=== PATIENT | female | born 1955 | race Caucasian/White ===

== ENCOUNTER 2016-06-16 06:27 | Inpatient (IN) | payer SELFPAY ==
[~2016-06-16] VITALS: Ht 165.1 cm; Wt 67.8 kg
[2016-06-16] VITALS (10 sets, daily range): BP systolic 115–175; BP diastolic 60–75
[2016-06-16] MEDS ORDERED: FENTANYL PF 100 MCG/2 ML VIAL. IV PRN ×4 (06:45→20:15)
[2016-06-16] MEDS ORDERED: ONDANSETRON PF 4 MG/2 ML VIAL. IV PRN ×4 (06:45→14:00)
--- NOTE | 2016-06-16 06:57 | PHYS DOC ---
Past Medical History Past Medical History: Hypertension Past Surgical History breast tumor removal Alcohol Use: None Drug Use: None Adult General Chief Complaint Chief Complaint: ABDOMINAL PAIN HPI HPI 52-year-old female presenting to the emergency department with periumbilical abdominal pain. This started approximately 24 hours ago. She has associated nausea and vomiting. Her vomitus is nonbloody and nonbilious. Over the course last 24 hours her pain is migrated down to the right lower quadrant. Her pain is moderate sharp nonradiating and without alleviating factors. Review of systems is negative for chest pain shortness of breath. She denies fevers or chills. Positive for nausea and vomiting. All other review of systems is negative unless otherwise noted in history of present illness. Review of Systems Review of Systems SEE ABOVE. Current Medications Current Medications Current Medications Medications (Trade) Dose Ordered Sig/Nj Start Time Stop Time Status Last Admin Dose Admin Fentanyl Citrate (Fentanyl 2ml Vial) 50 mcg PRN Q2HR PRN 06/16/16 06:45 06/16/16 06:54 50 MCG Iohexol 75 ml 75 ml 1X ONCE 06/16/16 08:30 06/16/16 08:31 DC 06/16/16 08:28 75 ML Ondansetron HCl (Zofran) 4 mg PRN Q30MIN PRN 06/16/16 06:45 06/16/16 06:54 4 MG Piperacillin Sod/ Tazobactam Sod 1 each 1 each PRN DAILY PRN 06/16/16 09:00 Sodium Chloride (Iv Sodium Chloride 0.9% 500ml Bag) 500 ml @ 500 mls/hr 1X ONCE 06/16/16 09:00 06/16/16 09:59 DC 06/16/16 09:09 500 MLS/HR Sodium Chloride (Iv Sodium Chloride 0.9% 1000ml Bag) 1,000 ml @ 100 mls/hr 1X ONCE 06/16/16 09:00 06/16/16 18:59 06/16/16 09:53 100 MLS/HR Allergies Allergies Allergies Coded Allergies Type Severity Reaction Last Updated Verified tetracycline Allergy Unknown 06/16/16 Yes Physical Exam Physical Exam Constitutional: Well developed, well nourished, no acute distress, non-toxic appearance. HENT: Normocephalic, atraumatic, bilateral external ears normal, oropharynx moist, no oral exudates, nose normal. [] Eyes: PERRLA, EOMI, conjunctiva normal, no discharge. [] Neck: Normal range of motion, no tenderness, supple, no stridor. Cardiovascular:Heart rate regular rhythm, no murmur [] Lungs & Thorax: Bilateral breath sounds clear to auscultation Abdomen: Patient has tenderness in the right lower quadrant. Positive McBurney' s point. Negative Tolentino sign. No rebound tenderness. Mild guarding present. Skin: Warm, dry, no erythema, no rash. [] Back: No tenderness, no CVA tenderness. Extremities: No tenderness, no cyanosis, no clubbing, ROM intact, no edema. [] Neurologic: Alert and oriented X 3, normal motor function, normal sensory function, no focal deficits noted. Psychologic: Affect normal, judgement normal, mood normal. [] Current Patient Data Vital Signs Vital Signs Date Time Temp Pulse Resp B/P Pulse Ox O2 Delivery O2 Flow Rate FiO2 06/16/16 08:30 66 173/81 Room Air 06/16/16 08:00 16 96 06/16/16 06:33 97.9 97.9 Lab Values Laboratory Tests Test 06/16/16 06:45 White Blood Count 12.6x10^3/uL (4.0-11.0) H Red Blood Count 4.46x10^6/uL (3.50-5.40) Hemoglobin 13.8g/dL (12.0-15.5) Hematocrit 41.0% (36.0-47.0) Mean Corpuscular Volume 92fL (79-100) Mean Corpuscular Hemoglobin 31pg (25-35) Mean Corpuscular Hemoglobin Concent 34g/dL (31-37) Red Cell Distribution Width 12.7% (11.5-14.5) Platelet Count 230x10^3/uL (140-400) Neutrophils (%) (Auto) 77% (31-73) H Lymphocytes (%) (Auto) 14% (24-48) L Monocytes (%) (Auto) 9% (0-9) Eosinophils (%) (Auto) 0% (0-3) Basophils (%) (Auto) 0% (0-3) Neutrophils # (Auto) 9.7x10^3uL (1.8-7.7) H Lymphocytes # (Auto) 1.7x10^3/uL (1.0-4.8) Monocytes # (Auto) 1.1x10^3/uL (0.0-1.1) Eosinophils # (Auto) 0.0x10^3/uL (0.0-0.7) Basophils # (Auto) 0.0x10^3/uL (0.0-0.2) Urine Collection Type Unknown Urine Color Yellow Urine Clarity Clear Urine pH 7.0 Urine Specific [place] <=1.005 Urine Protein Negativemg/dL (NEG-TRACE) Urine Glucose (UA) Negativemg/dL (NEG) Urine Ketones (Stick) Negativemg/dL (NEG) Urine Blood Small (NEG) Urine Nitrite Negative (NEG) Urine Bilirubin Negative (NEG) Urine Urobilinogen Dipstick 0.2mg/dL (0.2 mg/dL) Urine Leukocyte Esterase Trace (NEG) Urine RBC 0/HPF (0-2) Urine WBC 1-4/HPF (0-4) Urine Squamous Epithelial Cells Mod/LPF Urine Bacteria 0/HPF (0-FEW) Sodium Level 134mmol/L (136-145) L Potassium Level 3.6mmol/L (3.5-5.1) Chloride Level 97mmol/L (98-107) L Carbon Dioxide Level 26mmol/L (21-32) Anion Gap 11 (6-14) Blood Urea Nitrogen 10mg/dL (7-20) Creatinine 0.8mg/dL (0.6-1.0) Estimated GFR (Cockcroft-Gault) 73.7 BUN/Creatinine Ratio 13 (6-20) Glucose Level 141mg/dL (70-99) H Calcium Level 8.8mg/dL (8.5-10.1) Total Bilirubin 0.6mg/dL (0.2-1.0) Aspartate Amino Transferase (AST) 20U/L (15-37) Alanine Aminotransferase (ALT) 39U/L (14-59) Alkaline Phosphatase 119U/L (46-116) H Total Protein 7.7g/dL (6.4-8.2) Albumin 3.6g/dL (3.4-5.0) Albumin/Globulin Ratio 0.9 (1.0-1.7) L Lipase 89U/L (73-393) Laboratory Tests 06/16/16 06:45 Laboratory Tests 06/16/16 06:45 EKG EKG [] Radiology/Procedures Radiology/Procedures [] Course & Med Decision Making Course & Med Decision Making Pertinent Labs and Imaging studies reviewed. (See chart for details) [] 60-year-old female presenting to the emergency department today with abdominal pain. Triage vital signs. Afebrile with a normal heart rate. Otherwise hypertension present. Physical exam showed tenderness in McBurney's point. The patient was given IV fluids nausea and pain medication in the emergency department. Labs sent. Leukocytosis present. CT the abdomen pelvis suggestive of acute appendicitis. The patient was placed nothing by mouth. IV antibiotics administered. Otherwise urine testing negative. Chemistry panel otherwise unremarkable. The patient was then admitted to our hospital for further evaluation treatment and care. Our surgeon circulation crew leader dr. sebastian was notified at 930am. Dragon Disclaimer Dragon Disclaimer This electronic medical record was generated, in whole or in part, using a voice recognition dictation system. Departure Departure Impression: Primary Impression: Abdominal pain Disposition: ADMITTED INPATIENT Admitting Physician: Rafael Peoples Condition: STABLE Referrals: GAIL GILLIS MD Patient Instructions: Abdominal Pain JACQUES FIELDS MD Jun 16, 2016 06:57
[2016-06-16 06:58] LABS: BASO % 0 % (0-3); EOS % 0 % (0-3); HEMOGLOBIN 13.8 g/dL (12.0-15.5); LYMPH # 1.7 x10^3/uL (1.0-4.8); LYMPH % 14 % (24-48); MEAN CORPUSCULAR HEMOGLOBIN 31 pg (25-35); MEAN CORPUSCULAR HGB CONC 34 g/dL (31-37); MEAN CORPUSCULAR VOLUME 92 fL (79-100); MONO % 9 % (0-9); NEUT % 77 % (31-73); PLATELET COUNT 230 x10^3/uL (140-400); RED BLOOD COUNT 4.46 x10^6/uL (3.50-5.40); RED CELL DISTRIBUTION WIDTH 12.7 % (11.5-14.5); WHITE BLOOD COUNT 12.6 x10^3/uL (4.0-11.0)
[2016-06-16 06:59] LABS: BILIRUBIN,URINE NEGATIVE (NEG); GLUCOSE,URINE NEGATIVE (NEG); NITRITE,URINE NEGATIVE (NEG); PROTEIN,URINE NEGATIVE (NEG-TRACE); UROBILINOGEN,URINE 0.2 mg/dL (0.2 mg/dL)
[2016-06-16 07:09] LABS: CALCIUM 8.8 mg/dL (8.5-10.1); CREATININE 0.8 mg/dL (0.6-1.0); GFR 73.7; POTASSIUM 3.6 mmol/L (3.5-5.1)
[2016-06-16 07:15] LABS: ALBUMIN 3.6 g/dL (3.4-5.0); ALBUMIN/GLOBULIN RATIO 0.9 (1.0-1.7); TOTAL BILIRUBIN 0.6 mg/dL (0.2-1.0); TOTAL PROTEIN 7.7 g/dL (6.4-8.2)
[2016-06-16] MEDS ORDERED: IV NORMAL SALINE 500ML BAG 500 ML IV ONE ×2 (07:15→09:00)
[2016-06-16 07:34] LABS: BACTERIA,URINE 0 /HPF (0-FEW); RBC,URINE 0 /HPF (0-2); SQUAMOUS EPITHELIAL CELL,UR MOD /LPF
[2016-06-16] MEDS ORDERED: IOHEXOL 300 MG/ML 75 ML VIAL IV ONE (08:30)
[2016-06-16] MEDS ORDERED: PIP/TAZO PER PHARMACY MC PRN (09:00)
[2016-06-16] MEDS ORDERED: IV NORMAL SALINE 1000ML BAG 1,000 ML IV ONE ×2 (09:00→13:30)
--- NOTE | 2016-06-16 09:01 | RAD ---
CT of the abdomen and pelvis with contrast, 06/16/2016: History: Right lower quadrant pain Multidetector CT imaging was performed following an IV bolus injection of iodinated contrast material. No oral contrast material was administered for this exam. There is minimal bibasilar atelectasis/infiltrate. The heart is at the upper limits of normal in size. No hepatic abnormality is seen. The gallbladder is unremarkable. The pancreas shows no abnormality. The spleen is of normal size. There are prominent extrarenal pelves without evidence of hydronephrosis. Aortoiliac calcific plaquing is present without evidence of aneurysm. No abdominal or pelvic adenopathy is seen. There is a blind-ending tubular structure containing fluid in the right lower quadrant along the base of the cecum compatible with a dilated appendix. Its gruber are thickened. It measures 15 mm in greatest width. There is mild streaky periappendiceal inflammation. The appearance is that of acute appendicitis. The bowel loops are not dilated. There may be a trace amount of free fluid in the pelvis on the left. No free air is evident in the abdomen or pelvis. IMPRESSION: Acute appendicitis. PQRS Compliance Statement: One or more of the following individualized dose reduction techniques were utilized for this examination: 1. Automated exposure control 2. Adjustment of the mA and/or kV according to patient size 3. Use of iterative reconstruction technique
[2016-06-16] MEDS: PIPERACILLIN/TAZOBACTAM 3.375 GM in IV NORMAL SALINE 50ML 50 ML IV SCH ×2 (09:12→19:20)
--- NOTE | 2016-06-16 09:24 | ACF ---
Admission Forms Criteria ABDOMINAL PAIN Clinical Indications for Admission to Inpatient Care (Place 'X' for any and all applicable criteria): Admission is indicated for ANY ONE of the following(1)(2)(3)(4)(5): [X]I. Inpatient admission required rather than observation care (Also use Abdominal Pain: Observation Care, as appropriate) because of ANY ONE of the following: [ ]a) Severe pain requiring acute inpatient management [X]b) Identification of etiology/finding that requires inpatient care (eg, aortic dissection, free air) [ ]c) Absent bowel sounds with complete ileus(6) [ ]d) Suspected toxic megacolon [ ]e) Severe electrolyte abnormalities requiring inpatient care [ ]f) High fever or infection requiring inpatient admission as indicated by ANY ONE of following(7)(8): [ ] i) Appropriate outpatient or observational care antimicrobial treatment unavailable, not effective, or not feasible [ ] ii) Documented bacteremia [ ] iii) Temperature > 104.9 degrees F (oral) [ ] iv) T >103.1 F (oral) or < 96.8 F(rectal) that does not respond to all emergency treatment measures [ ]g) Signs of intestinal obstruction [B] [ ]h) Hemodynamic instability [ ]i) IV fluid to replace significant ongoing losses (greater than 3 L/m2 per day) (12)(13) [ ]j) Percutaneous or open drainage (eg, abscess, biliary tract ) procedures [ ]k) Parenteral nutrition regimen that must be implemented on inpatient basis [ ]l) Other condition,treatment or monitoring requiring inpatient admission. [ ]II. Peritoneal signs present [ ]III. Surgery needed that cannot be performed on an ambulatory basis. [ ]IV. Evaluation requires patient to not eat or drink for extended period ( eg, more than 24 hours). [ ]V. Contraindications and/or Inappropriate clinical situations for Observational Care in patients with abdominal pain, when ANY ONE of the following is required: [ ]a) Thorough evaluation is required to prevent catastrophic events due to delays in diagnosing (e.g.Mesenteric ischemia) 1,3 [ ]b) Patient with severe pathology or with chronic symptoms unlikely to improve in the ED stay (3) [ ]. General contraindications and/or Inappropriate clinical situations for Observational Care in patients with abdominal pain, when ANY ONE of the following is required: [ ]a) Prediction of prolongation of LOS based on ANY ONE of the following may be considered as a contraindication for observational care 2, 3, 4, 5, 6, 7, 8, 9, 10, 11 [ ]i) Age > 65 yrs. [ ]ii) Patient arriving by ambulance [ ]iii) Patient with high acuity [ ]iv) Patient requiring vital sign monitoring [ ]v) Patient on IV medication [ ]b) Systolic blood pressures 180mmHg 3,12 [ ]c) Patient with altered mental status including delirium and other alteration of consciousness, (3) [ ]d) Patient whose discharge disposition will be to a assisted home or rehabilitation home should not be managed in Emergency Department Observation Unit. CMS rule requires 3 days hospital stay before such placement.3,13 [ ]e) Patient with failure to thrive due to broad array of etiologies 3,16,17 [ ]f) Inability to ambulate 3,14 Extended stay beyond goal length of stay may be needed for(2)(3): [ ]a) Persistent abdominal pain with suspected intra-abdominal process [ ]b) Diagnosed condition requiring continued stay (e.g., pancreatitis, complicated diverticulitis) [ ]c) Surgery (e.g., colectomy) The original [facility] content created by [facility] has been revised. The portions of the content which have been revised are identified through the use of italic text or in bold, and [facility] has neither reviewed nor approved the modified material.All other unmodified content is copyright [facility]. Please see references footnoted in the original [facility] edition 2016 Admission Criteria Met?: Yes KANE VALLE Jun 16, 2016 09:24
[2016-06-16] MEDS ORDERED: MORPHINE SULFATE 2 MG/ML DISP.SYRIN. IV PRN ×2 (09:30→14:00)
[2016-06-16 09:41] LABS: PROTHROMBIN TIME PATIENT 12.9 SEC (11.7-14.0)
--- NOTE | 2016-06-16 10:31 | EKG ---
[facility] [address] [place] [address] Test Date: 2016-06-16 Test Time: 10:20:10 Pat Name: MISTY CORREA Department: Room: [facility] Gender: F Medicaid Service Coordinator: : 1955 Requested By: JACQUES FIELDS Order Number: [id number] Reading MD: Hali Buitrago Measurements Intervals Distant Rate: 64 P: 59 AK: 152 QRS: 18 QRSD: 78 T: 36 QT: 436 QTc: 449 Interpretive Statements SINUS RHYTHM NORMAL EKG RI6.01 Unconfirmed report No previous ECG available for comparison Electronically Signed On 06-18-2016 10:51:39 CDT by Hali Buitrago
--- NOTE | 2016-06-16 10:43 | PDOC2 ---
[employer] 06/16/16 1043: CARDIAC CONSULT DATE OF CONSULT Date of Consult DATE: 06/16/16 TIME: 10:40 REASON FOR CONSULT Reason for Consult: pre-op evaluation REFERRING PHYSICIAN Referring Physician: Dr. Vasyl Holbrook SOURCE Source: Caregiver (daughter who speaks Czech), Chart review, Patient HISTORY OF PRESENT ILLNESS HISTORY OF PRESENT ILLNESS 60 year old female visiting her daughter for [employer]. Presented to ER with bobo-umbilical pain, nausea and vomiting. CT scan of abd/pelvis with appendicitis. For surgery later today. Malignant HTN with SBP of 190 now. History of bradycardia. Unable to open program to read EKGs. Tele with NSR. No recent history of CP, dyspnea, PND, LE edema, URI. Reason for Visit: pre-operative evaluation PAST MEDICAL HISTORY Cardiovascular: HTN, Other (bradycardia) PAST SURGICAL HISTORY Past Surgical History: Hysterectomy ( with single oopherectomy), Other (breast biopsy for benign tumors) FAMILY HISTORY Family History: Heart Disease (valvular) SOCIAL HISTORY Smoke: No ALCOHOL: none Drugs: None CURRENT MEDICATIONS CURRENT MEDICATIONS Current Medications Medications (Trade) Dose Ordered Sig/Nj Route PRN Reason Start Time Stop Time Status Last Admin Dose Admin Fentanyl Citrate (Fentanyl 2ml Vial) 50 mcg PRN Q2HR PRN IV SEVERE PAIN 06/16/16 06:45 06/16/16 06:54 Ondansetron HCl 4 mg 4 mg PRN Q30MIN PRN IV NAUSEA/VOMITING 06/16/16 06:45 06/16/16 06:54 Sodium Chloride (Iv Sodium Chloride 0.9% 500ml Bag) 500 ml @ 500 mls/hr 1X ONCE IV 06/16/16 07:15 06/16/16 08:14 DC 06/16/16 07:17 Iohexol 75 ml 75 ml 1X ONCE IV 06/16/16 08:30 06/16/16 08:31 DC 06/16/16 08:28 Sodium Chloride 500 ml @ 500 mls/hr 1X ONCE IV 06/16/16 09:00 06/16/16 09:59 DC 06/16/16 09:09 Sodium Chloride 1,000 ml @ 100 mls/hr 1X ONCE IV 06/16/16 09:00 06/16/16 18:59 06/16/16 09:53 Piperacillin Sod/ Tazobactam Sod/ Sodium Chloride (Zosyn/Iv Sodium Chloride 0.9% 50ml) 50 ml @ 100 mls/hr Q6HRS IV 06/16/16 09:30 06/16/16 09:12 ALLERGIES ALLERGIES: Coded Allergies: tetracycline (Verified Allergy, Unknown, 06/16/16) ROS Review of System 14 point review with pertinent positives in HPI PHYSICAL EXAM General: Alert, Oriented X3, Cooperative, No acute distress HEENT: Atraumatic, PERRLA Lungs: Clear to auscultation, Normal air movement Heart: Regular rate, Normal S1, Normal S2, No murmurs, Other (no carotid bruits ) Abdomen: Normal bowel sounds, Soft, No tenderness Extremities: No edema Skin: No rashes Neuro: Normal speech Psych/Mental Status: Mental status NL, Mood NL MUSCULOSKELETAL: No deformity VITALS VITALS Vital Signs Date Time Temp Pulse Resp B/P Pulse Ox O2 Delivery O2 Flow Rate FiO2 06/16/16 08:30 66 173/81 Room Air 06/16/16 08:00 16 96 06/16/16 06:33 97.9 97.9 LABS Lab: Laboratory Tests Test 06/16/16 06:45 06/16/16 09:23 White Blood Count 12.6x10^3/uL (4.0-11.0) Red Blood Count 4.46x10^6/uL (3.50-5.40) Hemoglobin 13.8g/dL (12.0-15.5) Hematocrit 41.0% (36.0-47.0) Mean Corpuscular Volume 92fL (79-100) Mean Corpuscular Hemoglobin 31pg (25-35) Mean Corpuscular Hemoglobin Concent 34g/dL (31-37) Red Cell Distribution Width 12.7% (11.5-14.5) Platelet Count 230x10^3/uL (140-400) Neutrophils (%) (Auto) 77% (31-73) Lymphocytes (%) (Auto) 14% (24-48) Monocytes (%) (Auto) 9% (0-9) Eosinophils (%) (Auto) 0% (0-3) Basophils (%) (Auto) 0% (0-3) Neutrophils # (Auto) 9.7x10^3uL (1.8-7.7) Lymphocytes # (Auto) 1.7x10^3/uL (1.0-4.8) Monocytes # (Auto) 1.1x10^3/uL (0.0-1.1) Eosinophils # (Auto) 0.0x10^3/uL (0.0-0.7) Basophils # (Auto) 0.0x10^3/uL (0.0-0.2) Urine Collection Type Unknown Urine Color Yellow Urine Clarity Clear Urine pH 7.0 Urine Specific [place] <=1.005 Urine Protein Negativemg/dL (NEG-TRACE) Urine Glucose (UA) Negativemg/dL (NEG) Urine Ketones (Stick) Negativemg/dL (NEG) Urine Blood Small (NEG) Urine Nitrite Negative (NEG) Urine Bilirubin Negative (NEG) Urine Urobilinogen Dipstick 0.2mg/dL (0.2 mg/dL) Urine Leukocyte Esterase Trace (NEG) Urine RBC 0/HPF (0-2) Urine WBC 1-4/HPF (0-4) Urine Squamous Epithelial Cells Mod/LPF Urine Bacteria 0/HPF (0-FEW) Sodium Level 134mmol/L (136-145) Potassium Level 3.6mmol/L (3.5-5.1) Chloride Level 97mmol/L (98-107) Carbon Dioxide Level 26mmol/L (21-32) Anion Gap 11 (6-14) Blood Urea Nitrogen 10mg/dL (7-20) Creatinine 0.8mg/dL (0.6-1.0) Estimated GFR (Cockcroft-Gault) 73.7 BUN/Creatinine Ratio 13 (6-20) Glucose Level 141mg/dL (70-99) Calcium Level 8.8mg/dL (8.5-10.1) Total Bilirubin 0.6mg/dL (0.2-1.0) Aspartate Amino Transf (AST/SGOT) 20U/L (15-37) Alanine Aminotransferase (ALT/SGPT) 39U/L (14-59) Alkaline Phosphatase 119U/L (46-116) Total Protein 7.7g/dL (6.4-8.2) Albumin 3.6g/dL (3.4-5.0) Albumin/Globulin Ratio 0.9 (1.0-1.7) Lipase 89U/L (73-393) Prothrombin Time 12.9SEC (11.7-14.0) Prothromb Time International Ratio 1.0 (0.8-1.1) Activated Partial Thromboplast Time 30SEC (24-38) ASSESSMENT/PLAN ASSESSMENT/PLAN 1. pre-op evaluation hx of HTN and bradycardia - echo urgently OR for appendicitis later today control BP with ACEI - no BB due to bradycardia 2. HTN, malignant no BB control with ACEI; give stat dose 3. bradycardia NO BETA-BLOCKERS utility tender carding bobo-operatively as well as post-operatively ADDENDUM @ 1359: ECHO WITHOUT SIGNIFICANT FINDINGS; MAY PROCEED WITH SURGERY REVISED CENTENO SCORE = 0 AVOID BETA-BLOCKERS DUE TO HISTORY OF BRADYCARDIA Problems: SARA DAVIDSON MD 06/16/16 1849: CARDIAC CONSULT ALLERGIES ALLERGIES: Coded Allergies: tetracycline (Verified Allergy, Unknown, 06/16/16) ASSESSMENT/PLAN ASSESSMENT/PLAN Patient seen and examined. I agree with the bone nurse practitioner note. 60-year-old woman presenting with possible appendicitis and hypertensive urgency insetting of pain. Blood pressure better controlled now. No significant cardiovascular abnormalities. Indication recommendations as noted above. Echocardiogram with normal LV function. She would be deemed low risk from a cardiac standpoint. Problems: SAGRARIO GILMORE APRN Jun 16, 2016 10:43 SARA DAVIDSON MD Jun 16, 2016 18:49
[2016-06-16] MEDS: ENALAPRILAT 2.5 MG/2 ML VIAL. IV SCH ×3 (11:17→23:35)
[2016-06-16] MEDS ORDERED: hydrALAZINE 20 MG/ML VIAL. IVP PRN ×2 (12:00→13:00)
--- NOTE | 2016-06-16 12:58 | CARD ---
APPROVED REPORT EXAM: Two-dimensional and M-mode echocardiogram with Doppler and color Doppler. Other Information Quality : Good INDICATION Abnormal ECG Hypertension/HCVD Pre-Op 2D DIMENSIONS RVDd2.8 (2.9-3.5cm)Left Atrium(2D)3.4 (1.6-4.0cm) IVSd1.1 (0.7-1.1cm)Aortic Root(2D)2.3 (2.0-3.7cm) LVDd4.3 (3.9-5.9cm)LVOT Diameter2.0 (1.8-2.4cm) PWd1.1 (0.7-1.1cm)LVDs2.4 (2.5-4.0cm) FS (%) 30.0 %SV61.6 ml LVEF(%)60.0 (>50%) Aortic Valve AoV Peak Martin.180.9cm/sAoV VTI35.0cm AO Peak GR.13.1mmHgLVOT Peak Martin.158.9cm/s LVOT VTI 29.77cmAO Mean GR.7mmHg COLLIN (VMAX)2.24gv9YLJ (VTI)2.69cm2 Mitral Valve MV E Eyrphrsx05.0cm/sMV DECEL [id number] MV A Jxazujjn02.4cm/sMV SYF99ua E/A Ratio0.8MVA (PHT)3.48cm2 TDI E/Lateral E'8.3E/Medial E'9.0 Tricuspid Valve TR P. Kagenecv212pu/sRAP QDDFDLHT2ggWd TR Peak Gr.66ohBwFZJH44dkXf Pulmonary Vein S1 Hlxsqbvc80.9cm/sD2 Iyoveghk61.1cm/s PVa [id number] LEFT VENTRICLE The left ventricle is normal size. There is normal left ventricular wall thickness. The left ventricu lar systolic function is normal and the ejection fraction is within normal range. The Ejection Fracti on is 55-60%. There is normal LV segmental wall motion. Transmitral Doppler flow pattern is Grade I-a bnormal relaxation pattern. RIGHT VENTRICLE The right ventricle is normal size. The right ventricular systolic function is normal. ATRIA The left atrium size is normal. The right atrium size is normal. The interatrial septum is intact wit h no evidence for an atrial septal defect or patent foramen ovale as noted on 2-D or Doppler imaging. AORTIC VALVE The aortic valve is normal in structure and function. Doppler and Color Flow revealed no significant aortic regurgitation. There is no significant aortic valvular stenosis. MITRAL VALVE The mitral valve is normal in structure and function. There is no evidence of mitral valve prolapse. There is no mitral valve stenosis. Doppler and Color-flow revealed trace mitral regurgitation. TRICUSPID VALVE The tricuspid valve is normal in structure and function. Doppler and Color Flow revealed trace tricus pid regurgitation. The PA pressure was estimated at 28 mmHg. There is no tricuspid valve stenosis. PULMONIC VALVE Doppler and Color Flow revealed no pulmonic valvular regurgitation. There is no pulmonic valvular marino nosis. GREAT VESSELS The aortic root is normal in size. The ascending aorta is normal in size. The IVC is normal in size a nd collapses >50% with inspiration. PERICARDIAL EFFUSION There is no evidence of significant pericardial effusion. Critical Notification Critical Value: No <Conclusion> The left ventricular systolic function is normal and the ejection fraction is within normal range. Th e Ejection Fraction is 55-60%. There is normal LV segmental wall motion.
[2016-06-16] MEDS ORDERED: ACETAMINOPHEN 325 MG TABLET. PO PRN (13:00)
[2016-06-16] MEDS ORDERED: ALBUTEROL SULFATE 2.5 MG/3 ML NEBU. NEB PRN (13:00)
[2016-06-16] MEDS ORDERED: HYDROCODONE/APAP 5/325MG TABLET. PO PRN (13:00)
--- NOTE | 2016-06-16 13:26 | PDOC ---
Provider Note Provider Note HP note dictated. CHERYL ALFONSO MD Jun 16, 2016 13:26
--- NOTE | 2016-06-16 13:34 | PDOC2 ---
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 Acute abdominal pain yesterday RLQ, worse with movement. Loose stools day. No history of similar pain. + nausea and emesis Past Medical History Cardiovascular: HTN, Other (bradycardia) Past Surgical History Past Surgical History: Hysterectomy ( with single oopherectomy), Other (breast biopsy for benign tumors) Family History Family History: Heart Disease (valvular) Social History No ALCOHOL: none Drugs: None Current Problem List Problem List Problems Medical Problems: (1) Abdominal pain Status: Acute (2) Appendicitis Status: Acute Current Medications Current Medications Current Medications Fentanyl Citrate (Fentanyl 2ml Vial) 50 mcg PRN Q2HR PRN IV SEVERE PAIN Last administered on 06/16/16 06:54; Start 06/16/16 at 06:45 Ondansetron HCl 4 mg 4 mg PRN Q30MIN PRN IV NAUSEA/VOMITING Last administered on 06/16/16 06:54; Start 06/16/16 at 06:45 Sodium Chloride (Iv Sodium Chloride 0.9% 500ml Bag) 500 ml @ 500 mls/hr 1X ONCE IV Last administered on 06/16/16 07:17; Start 06/16/16 at 07:15; Stop at 08:14; Status DC Iohexol 75 ml 75 ml 1X ONCE IV Last administered on 06/16/16 08:28; Start at 08:30; Stop 06/16/16 at 08:31; Status DC Sodium Chloride (Iv Sodium Chloride 0.9% 500ml Bag) 500 ml @ 500 mls/hr 1X ONCE IV Last administered on 06/16/16 09:09; Start 06/16/16 at 09:00; Stop at 09:59; Status DC Piperacillin Sod/ Tazobactam Sod 1 each 1 each PRN DAILY PRN MC SEE COMMENTS; Start 06/16/16 at 09:00 Sodium Chloride 1,000 ml @ 100 mls/hr 1X ONCE IV Last administered on 09:53; Start 06/16/16 at 09:00; Stop 06/16/16 at 18:59 Piperacillin Sod/ Tazobactam Sod/ Sodium Chloride (Zosyn/Iv Sodium Chloride 0.9 % 50ml) 50 ml @ 100 mls/hr Q6HRS IV Last administered on 06/16/16 09:12; Start 06/16/16 at 09:30 Ondansetron HCl (Zofran) 4 mg PRN Q8HRS PRN IV NAUSEA/VOMITING; Start 06/16/16 at 09:30; Stop 06/17/16 at 09:29 Morphine Sulfate 2 mg PRN Q2HR PRN IV PAIN; Start 06/16/16 at 09:30; Stop 06/17 at 09:29 Enalaprilat (Vasotec) 2.5 mg Q6HRS IV Last administered on 06/16/16 11:17; Start 06/16/16 at 12:00 Hydralazine HCl (Apresoline) 10 mg PRN Q4HRS PRN IVP ELEVATED BP, SEE COMMENTS ; Start 06/16/16 at 12:00 Acetaminophen (Tylenol) 325 mg PRN Q6HRS PRN PO MILD PAIN / TEMP; Start at 13:00 Acetaminophen/ Hydrocodone Bitart (Lortab 5/325) 1 tab PRN Q6HRS PRN PO MODERATE TO SEVERE PAIN; Start 06/16/16 at 13:00 Hydralazine HCl (Apresoline) 10 mg PRN Q4HRS PRN IVP ELEVATED BP, SEE COMMENTS ; Start 06/16/16 at 13:00 Ondansetron HCl (Zofran) 4 mg PRN Q8HRS PRN IV NAUSEA/VOMITING; Start 06/16/16 at 13:00 Albuterol Sulfate 2.5 mg 2.5 mg PRN Q4HRS PRN NEB SHORTNESS OF BREATH; Start at 13:00 Sodium Chloride (Iv Sodium Chloride 0.9% 1000ml Bag) 1,000 ml @ 75 mls/hr 1X ONCE IV ; Start 06/16/16 at 13:30; Stop 06/17/16 at 02:49 Allergies Allergies: Coded Allergies: tetracycline (Verified Allergy, Unknown, 06/16/16) ROS General: YES: Chills, No: Other (fevers) PSYCHOLOGICAL ROS: No: Anxiety, Depression Eyes: No Blurry vision, No Double vision HEENT: No: Heacaches, Sore Throat Hematological and Lymphatic: No: Bleeding Problems, Blood Clots Respiratory: YES: Shortness of breath, No: Cough Cardiovascular: No Chest Pain, No Palpitations Gastrointestinal: Yes Other (see hpi) Genitourinary: No Dysuria, No Hematuria Musculoskeletal: No Joint Pain, No Muscle Pain Neurological: No Confusion, No Numbness/Tingling Skin: No Pruritus, No Rash Physical Exam General: Alert, Oriented X3, Cooperative, No acute distress HEENT: PERRLA, Mucous membr. moist/pink Lungs: Clear to auscultation, Normal air movement Heart: Regular rate, Normal S1, Normal S2, No murmurs Abdomen: Soft, Other (ND, RLQ TTP, low pelvic scar ) Extremities: No clubbing, No cyanosis Skin: No rashes Neuro: Normal gait, Normal speech Psych/Mental Status: Mental status NL, Mood NL MUSCULOSKELETAL: No deformity, No swelling Vitals VITALS Vital Signs Date Time Temp Pulse Resp B/P Pulse Ox O2 Delivery O2 Flow Rate FiO2 06/16/16 11:17 63 175/69 06/16/16 11:05 97.9 18 96 Room Air 97.9 Labs Labs Laboratory Tests Test 06/16/16 06:45 06/16/16 09:23 White Blood Count 12.6x10^3/uL (4.0-11.0) Red Blood Count 4.46x10^6/uL (3.50-5.40) Hemoglobin 13.8g/dL (12.0-15.5) Hematocrit 41.0% (36.0-47.0) Mean Corpuscular Volume 92fL (79-100) Mean Corpuscular Hemoglobin 31pg (25-35) Mean Corpuscular Hemoglobin Concent 34g/dL (31-37) Red Cell Distribution Width 12.7% (11.5-14.5) Platelet Count 230x10^3/uL (140-400) Neutrophils (%) (Auto) 77% (31-73) Lymphocytes (%) (Auto) 14% (24-48) Monocytes (%) (Auto) 9% (0-9) Eosinophils (%) (Auto) 0% (0-3) Basophils (%) (Auto) 0% (0-3) Neutrophils # (Auto) 9.7x10^3uL (1.8-7.7) Lymphocytes # (Auto) 1.7x10^3/uL (1.0-4.8) Monocytes # (Auto) 1.1x10^3/uL (0.0-1.1) Eosinophils # (Auto) 0.0x10^3/uL (0.0-0.7) Basophils # (Auto) 0.0x10^3/uL (0.0-0.2) Urine Collection Type Unknown Urine Color Yellow Urine Clarity Clear Urine pH 7.0 Urine Specific [place] <=1.005 Urine Protein Negativemg/dL (NEG-TRACE) Urine Glucose (UA) Negativemg/dL (NEG) Urine Ketones (Stick) Negativemg/dL (NEG) Urine Blood Small (NEG) Urine Nitrite Negative (NEG) Urine Bilirubin Negative (NEG) Urine Urobilinogen Dipstick 0.2mg/dL (0.2 mg/dL) Urine Leukocyte Esterase Trace (NEG) Urine RBC 0/HPF (0-2) Urine WBC 1-4/HPF (0-4) Urine Squamous Epithelial Cells Mod/LPF Urine Bacteria 0/HPF (0-FEW) Sodium Level 134mmol/L (136-145) Potassium Level 3.6mmol/L (3.5-5.1) Chloride Level 97mmol/L (98-107) Carbon Dioxide Level 26mmol/L (21-32) Anion Gap 11 (6-14) Blood Urea Nitrogen 10mg/dL (7-20) Creatinine 0.8mg/dL (0.6-1.0) Estimated GFR (Cockcroft-Gault) 73.7 BUN/Creatinine Ratio 13 (6-20) Glucose Level 141mg/dL (70-99) Calcium Level 8.8mg/dL (8.5-10.1) Total Bilirubin 0.6mg/dL (0.2-1.0) Aspartate Amino Transf (AST/SGOT) 20U/L (15-37) Alanine Aminotransferase (ALT/SGPT) 39U/L (14-59) Alkaline Phosphatase 119U/L (46-116) Total Protein 7.7g/dL (6.4-8.2) Albumin 3.6g/dL (3.4-5.0) Albumin/Globulin Ratio 0.9 (1.0-1.7) Lipase 89U/L (73-393) Prothrombin Time 12.9SEC (11.7-14.0) Prothromb Time International Ratio 1.0 (0.8-1.1) Activated Partial Thromboplast Time 30SEC (24-38) Troponin I Quantitative < 0.017ng/mL (0.000-0.055) Laboratory Tests Test 06/16/16 06:45 06/16/16 09:23 White Blood Count 12.6x10^3/uL (4.0-11.0) Red Blood Count 4.46x10^6/uL (3.50-5.40) Hemoglobin 13.8g/dL (12.0-15.5) Hematocrit 41.0% (36.0-47.0) Mean Corpuscular Volume 92fL (79-100) Mean Corpuscular Hemoglobin 31pg (25-35) Mean Corpuscular Hemoglobin Concent 34g/dL (31-37) Red Cell Distribution Width 12.7% (11.5-14.5) Platelet Count 230x10^3/uL (140-400) Neutrophils (%) (Auto) 77% (31-73) Lymphocytes (%) (Auto) 14% (24-48) Monocytes (%) (Auto) 9% (0-9) Eosinophils (%) (Auto) 0% (0-3) Basophils (%) (Auto) 0% (0-3) Neutrophils # (Auto) 9.7x10^3uL (1.8-7.7) Lymphocytes # (Auto) 1.7x10^3/uL (1.0-4.8) Monocytes # (Auto) 1.1x10^3/uL (0.0-1.1) Eosinophils # (Auto) 0.0x10^3/uL (0.0-0.7) Basophils # (Auto) 0.0x10^3/uL (0.0-0.2) Urine Collection Type Unknown Urine Color Yellow Urine Clarity Clear Urine pH 7.0 Urine Specific [place] <=1.005 Urine Protein Negativemg/dL (NEG-TRACE) Urine Glucose (UA) Negativemg/dL (NEG) Urine Ketones (Stick) Negativemg/dL (NEG) Urine Blood Small (NEG) Urine Nitrite Negative (NEG) Urine Bilirubin Negative (NEG) Urine Urobilinogen Dipstick 0.2mg/dL (0.2 mg/dL) Urine Leukocyte Esterase Trace (NEG) Urine RBC 0/HPF (0-2) Urine WBC 1-4/HPF (0-4) Urine Squamous Epithelial Cells Mod/LPF Urine Bacteria 0/HPF (0-FEW) Sodium Level 134mmol/L (136-145) Potassium Level 3.6mmol/L (3.5-5.1) Chloride Level 97mmol/L (98-107) Carbon Dioxide Level 26mmol/L (21-32) Anion Gap 11 (6-14) Blood Urea Nitrogen 10mg/dL (7-20) Creatinine 0.8mg/dL (0.6-1.0) Estimated GFR (Cockcroft-Gault) 73.7 BUN/Creatinine Ratio 13 (6-20) Glucose Level 141mg/dL (70-99) Calcium Level 8.8mg/dL (8.5-10.1) Total Bilirubin 0.6mg/dL (0.2-1.0) Aspartate Amino Transf (AST/SGOT) 20U/L (15-37) Alanine Aminotransferase (ALT/SGPT) 39U/L (14-59) Alkaline Phosphatase 119U/L (46-116) Total Protein 7.7g/dL (6.4-8.2) Albumin 3.6g/dL (3.4-5.0) Albumin/Globulin Ratio 0.9 (1.0-1.7) Lipase 89U/L (73-393) Prothrombin Time 12.9SEC (11.7-14.0) Prothromb Time International Ratio 1.0 (0.8-1.1) Activated Partial Thromboplast Time 30SEC (24-38) Troponin I Quantitative < 0.017ng/mL (0.000-0.055) Assessment/Plan Assessment/Plan appendicitis HTN, bradycardia Echo pending, OR once cleared by cardiology JASWINDER SOMMER MD 06/16/16 2006: CONSULT Allergies Allergies: Coded Allergies: tetracycline (Verified Allergy, Unknown, 06/16/16) Assessment/Plan Assessment/Plan pt seen, interviewed and examined 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 she will proceed Thanks for consult NICOLE DE ANDA APRN Jun 16, 2016 13:34 JASWINDER SOMMER MD Jun 16, 2016 20:06
[2016-06-16] MEDS ORDERED: BUPIVAC MPF-EPI 0.5%-1:200000 30 ML VIAL. ONE (13:38)
[2016-06-16] MEDS ORDERED: IV RINGERS,LACTATED 1000ML 1,000 ML IV SCH (13:57)
[2016-06-16] MEDS ORDERED: HYDROMORPHONE 2 MG/ML VIAL. IV PRN ×2 (14:00→20:15)
[2016-06-16] MEDS ORDERED: LIDOCAINE 1% 1 ML SYRINGE. ID PRN (14:00)
[2016-06-16] MEDS ORDERED: PROCHLORPERAZINE 10 MG/2 ML VIAL. IV PRN (14:00)
[2016-06-16] MEDS ORDERED: PIPERACILLIN/TAZOBACTAM 3.375 GM in IV NORMAL SALINE 50ML 50 ML IV ONE (14:15)
--- NOTE | 2016-06-16 14:28 | HP ---
ADMIT DATE: 06/16/2016 CHIEF COMPLAINT: Abdominal pain. HISTORY OF PRESENT ILLNESS: A 60-year-old female patient with prior history of hypertension who is here from [place] to visit her daughter, presented to the ER with complaints of abdominal pain, right lower quadrant and periumbilical pain with nausea, fever and vomiting for nearly 1 day. Symptoms started yesterday afternoon and after that patient noted to have feverish feeling with some nausea and vomiting and this morning did present to the ER. At the time of arrival, the patient had a CT of the abdomen, which is suspected for acute appendicitis and admitted for further surgical evaluation. At the time of examination, I did use thread weaver. Patient denies any symptoms. Pain has been controlled with medication given in the ER and denies any nausea or any other symptoms except some mild shortness of breath. PAST MEDICAL HISTORY: Hypertension, left breast fibroids and some thyroid swellings. PAST SURGICAL HISTORY: Hysterectomy and oophorectomy. FAMILY HISTORY: Heart disease, valvular. SOCIAL HISTORY: No smoking, no alcohol, no drug abuse. ALLERGIES: TETRACYCLINE. REVIEW OF SYSTEMS: CONSTITUTIONAL: No fever or chills. EYES: No recent vision changes. SKIN: No rash or itching. CARDIOVASCULAR: No chest pain, syncope, palpitations or edema. RESPIRATORY: No shortness of breath, cough. GASTROINTESTINAL: Nausea, vomiting, and fever. NEUROLOGICAL: No headache, paralysis. ENDOCRINOLOGIC: No cold or heat intolerance. GENITOURINARY: No burning with urination, no urgency. MUSCULOSKELETAL: No back pain or joint pain. LYMPHATICS: No enlarged nodes. PSYCHIATRIC: No anxiety or depression. PHYSICAL EXAM: VITAL SIGNS: Temperature 97.7, pulse 66, respirations 16, blood pressure 173/81, pulse ox 96. GENERAL: No apparent distress. HEENT: Atraumatic. PERRLA. EOMI. NECK: No JVD, no thyromegaly. LUNGS: Clear to auscultation. HEART: Regular rate and rhythm; S1, S2 present; pulses intact. ABDOMEN: Right lower quadrant tenderness present. Bowel sounds present. EXTREMITIES: No cyanosis or edema. NEUROLOGIC: Normal speech and normal tone; alert and oriented. PSYCHIATRIC: Normal affect, normal mood. SKIN: No ulceration. LABORATORY DATA: WBC 12.6, MCV is 92, platelets 230, hemoglobin 13.8, hematocrit is 41.0. Chemistry: Sodium is 134, potassium 3.6, chloride is 97, carbon dioxide 26, gap 11, BUN 10. PT/INR within normal range. Urine protein is negative, nitrites negative, and leukocyte esterase is trace. IMAGING STUDIES: Abdominal and pelvis CT showed acute appendicitis. ASSESSMENT: 1. Acute appendicitis present on admission. 2. Hypertension, accelerated. 3. History of bradycardia. PLAN: 1. The patient's pain has been controlled with morphine and fentanyl. I will try to titrate fentanyl to 25. 2. General surgery has been consulted. 3. Hydralazine 10 mg IV q. 4 hours for hypertension and also Vasotec has been started. 4. The patient did not recall her home medications who I will ask RN to verify with the daughter to resume home medications. 5. Cardiology has been consulted for preop clearance. 6. Echocardiogram has been ordered. 7. Broad spectrum antibiotics has been initiated, Zosyn started in the ER. We will continue that. 8. IV hydration at 75 mL/hour. 9. Supportive care. Deep vein thrombosis prophylaxis. 10. Home medication needs to be verified with the family members. CHERYL ALFONSO MD DR: ERIC/kameron JOB#: [id number] / [id number]
[2016-06-16] MEDS ORDERED: ROCURONIUM 50 MG/5 ML VIAL. ONE (18:54)
[2016-06-16] MEDS ORDERED: FENTANYL PF 100 MCG/2 ML VIAL. ONE ×2 (18:54→20:06)
[2016-06-16] MEDS ORDERED: DESFLURANE > 120 MINUTES IH ONE (18:54)
[2016-06-16] MEDS ORDERED: PROPOFOL 20 ML IV ONE (18:55)
[2016-06-16] MEDS ORDERED: ONDANSETRON PF 4 MG/2 ML VIAL. ONE (18:55)
[2016-06-16] MEDS ORDERED: DEXAMETHASONE SOD PHOS 20 MG/5 ML VIAL. ONE (18:55)
[2016-06-16] MEDS ORDERED: LIDOCAINE 2% 100 MG/5 ML DISP.SYRIN. ONE (18:55)
[2016-06-16] MEDS ORDERED: GLYCOPYRROLATE 1 MG/5 ML VIAL. ONE (19:34)
[2016-06-16] MEDS ORDERED: NEOSTIGMINE METHYLSULFATE 5 MG/5 ML SYRINGE. ONE (19:34)
--- NOTE | 2016-06-16 20:05 | PDOC ---
BRIEF OPERATIVE NOTE Date: Jun 16, 2016 Pre-Op Diagnosis acute appendicitis Post-Op Diagnosis same Procedure Performed l/s appendectomy Surgeon Yusef Anesthesia Type: General Blood Loss 25cc IV Fluid 500cc Urine Output 50cc Specimens Obtained appendix Findings acute appendicitis Complications none Additional Remarks # [id number] JASWINDER SOMMER MD Jun 16, 2016 20:05
[2016-06-16] MEDS: FENTANYL PF 100 MCG/2 ML VIAL. IV PRN ×3 (20:10→20:53)
[2016-06-16] MEDS ORDERED: OXYCODONE/APAP 5/325 TABLET. PO PRN (20:15)
--- NOTE | 2016-06-16 23:20 | OP ---
DATE OF SURGERY: 06/16/2016 PREOPERATIVE DIAGNOSIS: Acute appendicitis. POSTOPERATIVE DIAGNOSIS: Acute appendicitis. PROCEDURE: Laparoscopic appendectomy. SURGEON: Vasyl Sommer M.D. ANESTHESIA: General endotracheal. BLOOD LOSS: 25. INTRAVENOUS FLUID: 500. INDICATIONS: The patient is a 60-year-old with right lower quadrant pain and CT consistent with appendicitis brought for appendectomy. OPERATIVE FINDINGS: She did indeed have an acute suppurative appendicitis without evidence of rupture. Visual inspection of the remainder of the abdomen failed to reveal obvious abnormalities. DESCRIPTION OF PROCEDURE: The patient brought to the operating suite, given a general endotracheal anesthetic. Hernandez catheter placement to dependent drainage and the abdomen prepped and draped in usual sterile fashion. A supraumbilical incision was made and a 5 mm Visiport used to gain access into the abdominal cavity, taking care to avoid injury to abdominal contents. Pneumoperitoneum was established. Camera inserted and under direct vision, the suprapubic and left lower quadrant ports were placed. The supraumbilical port was converted to 12 mm for instrumentation. With the table rolled to the left, the appendix was gently freed from the distal small bowel to expose its base. A small rent was created at the base of the appendix to allow passage of the Endo-EDMAR stapler across the base of the appendix and it was amputated. The mesoappendix was controlled with a vascular load of the Endo-EDMAR. Two medium large clips were used to augment hemostasis along the staple line. Appendix placed in an EndoCatch bag. Intraabdominal pressure decreased to 6 cm of water. No bleeding from the appendiceal stump or from the mesoappendix was seen. Table returned to level. Appendix delivered through the supraumbilical incision. Supraumbilical incision closed with interrupted 0 Vicryl suture. Again, a 6 cm of water intraabdominal pressure, no bleeding from the umbilical closure site or from the left lower quadrant port site after its removal. Abdomen decompressed, camera slowly removed, no bleeding seen. Skin incisions closed with subcuticular 4-0 Monocryl. Steri-Strips and sterile dressings applied. Hernandez catheter removed. The patient awakened from her anesthetic and taken to the recovery room in satisfactory condition. VASYL SOMMER MD DR: MARIELENA/kameron JOB#: [id number] / [id number]
[2016-06-17 00:45] VITALS: BP 134/64
[2016-06-17] MEDS: PIPERACILLIN/TAZOBACTAM 3.375 GM in IV NORMAL SALINE 50ML 50 ML IV SCH ×3 (00:55→12:40)
[2016-06-17 03:15] VITALS: BP 120/57
[2016-06-17] MEDS: ENALAPRILAT 2.5 MG/2 ML VIAL. IV SCH ×2 (04:17→12:40)
[2016-06-17 06:28] LABS: BASO % 0 % (0-3); EOS % 0 % (0-3); HEMOGLOBIN 12.8 g/dL (12.0-15.5); LYMPH % 12 % (24-48); MEAN CORPUSCULAR HEMOGLOBIN 31 pg (25-35); MEAN CORPUSCULAR HGB CONC 33 g/dL (31-37); MEAN CORPUSCULAR VOLUME 93 fL (79-100); MONO % 4 % (0-9); NEUT % 85 % (31-73); PLATELET COUNT 217 x10^3/uL (140-400); RED BLOOD COUNT 4.19 x10^6/uL (3.50-5.40); RED CELL DISTRIBUTION WIDTH 12.9 % (11.5-14.5); WHITE BLOOD COUNT 8.2 x10^3/uL (4.0-11.0)
[2016-06-17 06:30] LABS: CALCIUM 8.9 mg/dL (8.5-10.1); CREATININE 0.9 mg/dL (0.6-1.0); GFR 64.3; POTASSIUM 4.6 mmol/L (3.5-5.1)
[2016-06-17] MEDS ORDERED: FENTANYL PF 100 MCG/2 ML VIAL. IV PRN (06:45)
[2016-06-17 07:00] VITALS: BP 120/63
[2016-06-17 11:00] VITALS: BP 132/62
--- NOTE | 2016-06-17 11:09 | PDOC ---
PROGRESS NOTES Chief Complaint Chief Complaint Appendicitis ASSESSMENT AND PLAN: 1. Appendicitis: s/p lap mary beth.y on 06/[address] Holbrook. recovering well 2. pain control: good on oral regiemn 3. Dispo: pt feels ready to go home. as per Dr Holbrook Vitals Vitals Vital Signs Date Time Temp Pulse Resp B/P Pulse Ox O2 Delivery O2 Flow Rate FiO2 06/17/16 07:30 Room Air 06/17/16 07:00 98.1 74 14 120/63 92 98.1 06/17/16 02:00 2.0 Physical Exam General: Alert, Oriented X3, Cooperative, No acute distress Heart: Regular rate, Normal S1, Normal S2, No murmurs Abdomen: Soft, Other (ND, RLQ TTP, low pelvic scar ) Extremities: No clubbing, No cyanosis Skin: No rashes Labs LABS Laboratory Tests Test 06/17/16 05:40 White Blood Count 8.2x10^3/uL (4.0-11.0) Red Blood Count 4.19x10^6/uL (3.50-5.40) Hemoglobin 12.8g/dL (12.0-15.5) Hematocrit 39.0% (36.0-47.0) Mean Corpuscular Volume 93fL (79-100) Mean Corpuscular Hemoglobin 31pg (25-35) Mean Corpuscular Hemoglobin Concent 33g/dL (31-37) Red Cell Distribution Width 12.9% (11.5-14.5) Platelet Count 217x10^3/uL (140-400) Neutrophils (%) (Auto) 85% (31-73) Lymphocytes (%) (Auto) 12% (24-48) Monocytes (%) (Auto) 4% (0-9) Eosinophils (%) (Auto) 0% (0-3) Basophils (%) (Auto) 0% (0-3) Neutrophils # (Auto) 6.9x10^3uL (1.8-7.7) Lymphocytes # (Auto) 1.0x10^3/uL (1.0-4.8) Monocytes # (Auto) 0.3x10^3/uL (0.0-1.1) Eosinophils # (Auto) 0.0x10^3/uL (0.0-0.7) Basophils # (Auto) 0.0x10^3/uL (0.0-0.2) Sodium Level 139mmol/L (136-145) Potassium Level 4.6mmol/L (3.5-5.1) Chloride Level 105mmol/L (98-107) Carbon Dioxide Level 25mmol/L (21-32) Anion Gap 9 (6-14) Blood Urea Nitrogen 10mg/dL (7-20) Creatinine 0.9mg/dL (0.6-1.0) Estimated GFR (Cockcroft-Gault) 64.3 Glucose Level 191mg/dL (70-99) Calcium Level 8.9mg/dL (8.5-10.1) Review of Systems Review of Systems feels great, eager to go home. Comment Review of Relevant JONES MACK MD Jun 17, 2016 11:09
--- NOTE | 2016-06-17 12:04 | PDOC ---
NICOLE DE ANDA REGULATOR TESTER 06/17/16 1204: SURGICAL PROGRESS NOTE Subjective tolerating diet minimal pain urinating Vital Signs Vital Signs Date Time Temp Pulse Resp B/P Pulse Ox O2 Delivery O2 Flow Rate FiO2 06/17/16 11:00 97.8 58 14 132/62 93 Room Air 97.8 06/17/16 02:00 2.0 I&O Intake and Output 06/17/16 07:00 Intake Total 2750 ml Balance 2750 ml Intake Oral 200 ml IV Total 2550 ml # Voids 2 General: Alert, Oriented X3, Cooperative, No acute distress Abdomen: Soft, Other (lap site ttp, dressings dry ) Labs Laboratory Tests Test 06/16/16 06:45 06/16/16 09:23 06/17/16 05:40 White Blood Count 12.6x10^3/uL (4.0-11.0) 8.2x10^3/uL (4.0-11.0) Red Blood Count 4.46x10^6/uL (3.50-5.40) 4.19x10^6/uL (3.50-5.40) Hemoglobin 13.8g/dL (12.0-15.5) 12.8g/dL (12.0-15.5) Hematocrit 41.0% (36.0-47.0) 39.0% (36.0-47.0) Mean Corpuscular Volume 92fL (79-100) 93fL (79-100) Mean Corpuscular Hemoglobin 31pg (25-35) 31pg (25-35) Mean Corpuscular Hemoglobin Concent 34g/dL (31-37) 33g/dL (31-37) Red Cell Distribution Width 12.7% (11.5-14.5) 12.9% (11.5-14.5) Platelet Count 230x10^3/uL (140-400) 217x10^3/uL (140-400) Neutrophils (%) (Auto) 77% (31-73) 85% (31-73) Lymphocytes (%) (Auto) 14% (24-48) 12% (24-48) Monocytes (%) (Auto) 9% (0-9) 4% (0-9) Eosinophils (%) (Auto) 0% (0-3) 0% (0-3) Basophils (%) (Auto) 0% (0-3) 0% (0-3) Neutrophils # (Auto) 9.7x10^3uL (1.8-7.7) 6.9x10^3uL (1.8-7.7) Lymphocytes # (Auto) 1.7x10^3/uL (1.0-4.8) 1.0x10^3/uL (1.0-4.8) Monocytes # (Auto) 1.1x10^3/uL (0.0-1.1) 0.3x10^3/uL (0.0-1.1) Eosinophils # (Auto) 0.0x10^3/uL (0.0-0.7) 0.0x10^3/uL (0.0-0.7) Basophils # (Auto) 0.0x10^3/uL (0.0-0.2) 0.0x10^3/uL (0.0-0.2) Urine Collection Type Unknown Urine Color Yellow Urine Clarity Clear Urine pH 7.0 Urine Specific [place] <=1.005 Urine Protein Negativemg/dL (NEG-TRACE) Urine Glucose (UA) Negativemg/dL (NEG) Urine Ketones (Stick) Negativemg/dL (NEG) Urine Blood Small (NEG) Urine Nitrite Negative (NEG) Urine Bilirubin Negative (NEG) Urine Urobilinogen Dipstick 0.2mg/dL (0.2 mg/dL) Urine Leukocyte Esterase Trace (NEG) Urine RBC 0/HPF (0-2) Urine WBC 1-4/HPF (0-4) Urine Squamous Epithelial Cells Mod/LPF Urine Bacteria 0/HPF (0-FEW) Sodium Level 134mmol/L (136-145) 139mmol/L (136-145) Potassium Level 3.6mmol/L (3.5-5.1) 4.6mmol/L (3.5-5.1) Chloride Level 97mmol/L (98-107) 105mmol/L (98-107) Carbon Dioxide Level 26mmol/L (21-32) 25mmol/L (21-32) Anion Gap 11 (6-14) 9 (6-14) Blood Urea Nitrogen 10mg/dL (7-20) 10mg/dL (7-20) Creatinine 0.8mg/dL (0.6-1.0) 0.9mg/dL (0.6-1.0) Estimated GFR (Cockcroft-Gault) 73.7 64.3 BUN/Creatinine Ratio 13 (6-20) Glucose Level 141mg/dL (70-99) 191mg/dL (70-99) Calcium Level 8.8mg/dL (8.5-10.1) 8.9mg/dL (8.5-10.1) Total Bilirubin 0.6mg/dL (0.2-1.0) Aspartate Amino Transf (AST/SGOT) 20U/L (15-37) Alanine Aminotransferase (ALT/SGPT) 39U/L (14-59) Alkaline Phosphatase 119U/L (46-116) Total Protein 7.7g/dL (6.4-8.2) Albumin 3.6g/dL (3.4-5.0) Albumin/Globulin Ratio 0.9 (1.0-1.7) Lipase 89U/L (73-393) Prothrombin Time 12.9SEC (11.7-14.0) Prothromb Time International Ratio 1.0 (0.8-1.1) Activated Partial Thromboplast Time 30SEC (24-38) Troponin I Quantitative < 0.017ng/mL (0.000-0.055) Laboratory Tests Test 06/17/16 05:40 White Blood Count 8.2x10^3/uL (4.0-11.0) Red Blood Count 4.19x10^6/uL (3.50-5.40) Hemoglobin 12.8g/dL (12.0-15.5) Hematocrit 39.0% (36.0-47.0) Mean Corpuscular Volume 93fL (79-100) Mean Corpuscular Hemoglobin 31pg (25-35) Mean Corpuscular Hemoglobin Concent 33g/dL (31-37) Red Cell Distribution Width 12.9% (11.5-14.5) Platelet Count 217x10^3/uL (140-400) Neutrophils (%) (Auto) 85% (31-73) Lymphocytes (%) (Auto) 12% (24-48) Monocytes (%) (Auto) 4% (0-9) Eosinophils (%) (Auto) 0% (0-3) Basophils (%) (Auto) 0% (0-3) Neutrophils # (Auto) 6.9x10^3uL (1.8-7.7) Lymphocytes # (Auto) 1.0x10^3/uL (1.0-4.8) Monocytes # (Auto) 0.3x10^3/uL (0.0-1.1) Eosinophils # (Auto) 0.0x10^3/uL (0.0-0.7) Basophils # (Auto) 0.0x10^3/uL (0.0-0.2) Sodium Level 139mmol/L (136-145) Potassium Level 4.6mmol/L (3.5-5.1) Chloride Level 105mmol/L (98-107) Carbon Dioxide Level 25mmol/L (21-32) Anion Gap 9 (6-14) Blood Urea Nitrogen 10mg/dL (7-20) Creatinine 0.9mg/dL (0.6-1.0) Estimated GFR (Cockcroft-Gault) 64.3 Glucose Level 191mg/dL (70-99) Calcium Level 8.9mg/dL (8.5-10.1) Problem List Problems Medical Problems: (1) Abdominal pain Status: Acute (2) Appendicitis Status: Acute Assessment/Plan s/p lap appy, wbc 8.2 ok to dc home FU [address] Sommer Problems: JASWINDER SOMMER MD 06/17/16 1302: SURGICAL PROGRESS NOTE Assessment/Plan pt seen and examined agree with above home today Problems: NICOLE DE ANDA APRN Jun 17, 2016 12:04 JASWINDER SOMMER MD Jun 17, 2016 13:02
[2016-06-17 12:40] VITALS: BP 132/62
[2016-06-17] MEDS ORDERED: HYDR-2666 PO (13:24)
--- NOTE | 2016-06-17 14:06 | PDOC ---
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 06/17/16 1406: CARDIO Progress Notes Date and Time Date of Service 06/17/16 Time of Evaluation 1200 Subjective Subjective: No Chest Pain, No shortness of breath, No Palpitations, Other ( mild incisional pain) Vitals Vitals Vital Signs Date Time Temp Pulse Resp B/P Pulse Ox O2 Delivery O2 Flow Rate FiO2 06/17/16 12:40 58 132/62 06/17/16 11:00 97.8 14 93 Room Air 97.8 06/17/16 02:00 2.0 Weight Weight [ ] Input and Output Intake and Output Intake and Output 06/17/16 07:00 Intake Total 2750 ml Balance 2750 ml Intake Oral 200 ml IV Total 2550 ml # Voids 2 Laboratory Labs Laboratory Tests Test 06/17/16 05:40 White Blood Count 8.2x10^3/uL (4.0-11.0) Red Blood Count 4.19x10^6/uL (3.50-5.40) Hemoglobin 12.8g/dL (12.0-15.5) Hematocrit 39.0% (36.0-47.0) Mean Corpuscular Volume 93fL (79-100) Mean Corpuscular Hemoglobin 31pg (25-35) Mean Corpuscular Hemoglobin Concent 33g/dL (31-37) Red Cell Distribution Width 12.9% (11.5-14.5) Platelet Count 217x10^3/uL (140-400) Neutrophils (%) (Auto) 85% (31-73) Lymphocytes (%) (Auto) 12% (24-48) Monocytes (%) (Auto) 4% (0-9) Eosinophils (%) (Auto) 0% (0-3) Basophils (%) (Auto) 0% (0-3) Neutrophils # (Auto) 6.9x10^3uL (1.8-7.7) Lymphocytes # (Auto) 1.0x10^3/uL (1.0-4.8) Monocytes # (Auto) 0.3x10^3/uL (0.0-1.1) Eosinophils # (Auto) 0.0x10^3/uL (0.0-0.7) Basophils # (Auto) 0.0x10^3/uL (0.0-0.2) Sodium Level 139mmol/L (136-145) Potassium Level 4.6mmol/L (3.5-5.1) Chloride Level 105mmol/L (98-107) Carbon Dioxide Level 25mmol/L (21-32) Anion Gap 9 (6-14) Blood Urea Nitrogen 10mg/dL (7-20) Creatinine 0.9mg/dL (0.6-1.0) Estimated GFR (Cockcroft-Gault) 64.3 Glucose Level 191mg/dL (70-99) Calcium Level 8.9mg/dL (8.5-10.1) Physical Exam HEENT: Neck Supple W Full Motion Chest: Symmetric LUNGS: Clear to Auscultation Heart: S1S2, no murmurs, other (tele: SB 58) Abdomen: Other (mild abd tenderness. Lap appy sites) Extremities: No Edema, No Calf Tenderness Neurology: alert, oriented, follow commands Assessment Assessment 1. Malignant hypertension 2. Bradycardia, asymptomatic 3. Appendicitis, s/p lap appy Recommendations Avoid BB due to bradycardia will convert AMANDA to oral. continue post op management per surgical team SARA DAVIDSON MD 06/17/16 1503: CARDIO Progress Notes Plan Plan Pt. seen and examined. 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 No acute events overnight. Successful appy Mild bradycardia BP better controlled Start oral antihypertensives. Will follow. MICHAEL ARTEAGA APRN Jun 17, 2016 14:06 SARA DAVIDSON MD Jun 17, 2016 15:03
[2016-06-18] MEDS ORDERED: LISINOPRIL 20 MG TABLET PO SCH (09:00)
--- NOTE | 2016-06-18 13:45 | PATHOLOGY ---
PATHOLOGY REPORT * * * * * * * * FINAL DIAGNOSIS: Appendix, laparoscopic appendectomy: - Acute appendicitis. COMMENT: There is no evidence of rupture. There is no evidence of malignancy. (SHARI:; d/t: 06/18/16) REPORT ELECTRONICALLY SIGNED BY: Jonathan Galindo M.D. DATE/TIME: 06/18/2016 13:44 * * * * * * * * GROSS PATHOLOGY: Received in formalin labeled "Misty Correa, appendix," is an appendix measuring 6.9 cm in length and up to 1.6 cm in diameter with a small amount of attached mesoappendix. The serosal surface is pink-welch and glistening in appearance. Sectioning reveals a dilated lumen filled with blood coagulum and admixed with fecal material. The specimen is submitted representatively as follows: A1 proximal margin and bisected tip A2 additional cross sections of appendix. (CAA; 06/17/2016) INITIAL CPT CODE(S): A; 62390 Professional services performed [place] [facility] [address] Technical services performed by [facility] at [address] [place] [address]. SPECIMEN(S) RECEIVED: A.Appendix CLINICAL HISTORY: None provided PATIENT: MISTY CORREA /AGE: 9 1955 (Age: 60) PATIENT #: [id number] ALT CASE #: SPECIMEN COLLECTION DATE: 06/16/2016 SPECIMEN RECEIVED DATE: 06/17/2016 [facility] - [address] [place] [address] - PHONE: [phone] * * * END OF REPORT * * *
--- NOTE | 2016-06-19 01:07 | DS ---
DATE OF DISCHARGE: 06/17/2016 CHIEF COMPLAINT: Appendicitis. HOSPITAL COURSE: The patient is a 60-year-old woman in excellent state of health who presented to the Emergency Room with signs and symptoms of appendicitis. She was taken to the OR on 06/17/2016, by Dr. Holbrook for laparoscopic appendectomy. She recovered uneventfully and was eager to go home, which was achieved later that day with consent of Dr. Holbrook. PHYSICAL EXAMINATION: Please refer to note from 06/17/2016. DISCHARGE DISPOSITION: To home. DISCHARGE CONDITION: Improved. DISCHARGE DIAGNOSES: Appendicitis, status post appendectomy. DISCHARGE MEDICATIONS: Please refer to MAR. DISCHARGE INSTRUCTIONS: The patient will follow up with Dr. Holbrook in 10-14 days. JONES MACK MD DR: UR/nts JOB#: [id number] / [id number] CORINA
== END 2016-06-17 15:00 | disposition home or self-care (01) | DRG 342 ==
LOC: ER 06:27 → 4 NORTH 09:18
PROVIDERS: ADMIT Internal Medicine; ATTEND Internal Medicine
PROC: 0DTJ4ZZ Resection of Appendix, Percutaneous Endoscopic Approach (ICD-10-PCS; principal; 2016-06-16 17:00)
DX: K35.80 Unspecified acute appendicitis (principal); R65.10 Systemic inflammatory response syndrome (SIRS) of non-infectious origin without acute organ dysfunction; I10 Essential (primary) hypertension; Z88.1 Allergy status to other antibiotic agents; Z79.899 Other long term (current) drug therapy; R00.1 Bradycardia, unspecified
CPT/HCPCS: 36415; 74177; 80048; 80053; 81001; 83690; 84484; 85027; 85610; 85730; 86850; 86900; 86901; 87086; 88304; 93005; 93306; 96361; 96374; 96375; C1782; J1100; J1170; J2405; J2543; J2704; J2710; J3010; J3490; J7030; J7040; J7120; Q9967; 99285-25